=== PATIENT | female | born 1975 | race Caucasian/White ===

== ENCOUNTER 2024-02-05 14:05 | Emergency (ER) | payer BC ==
[~2024-02-05] VITALS: Ht 165.1 cm; Wt 62.5 kg
[2024-02-05 17:14] LABS: BILIRUBIN,URINE NEGATIVE (Neg); CLARITY,URINE CLOUDY (Clear); COLOR,URINE YELLOW (Yellow); GLUCOSE, URINE NEGATIVE (Neg); KETONES,URINE NEGATIVE (Neg); LEUKOCYTE ESTERASE ,URINE LARGE (Neg); NITRITES, URINE POSITIVE (Neg); OCCULT BLOOD,URINE MODERATE (Neg); PROTEIN,URINE NEGATIVE (Neg); UROBILINOGEN,URINE 0.2 E.U/dL (0.2-1.0)
[2024-02-05 17:17] LABS: UA COLLECTION TYPE CLN CATCH MIDSTREAM
[2024-02-05 17:19] LABS: PREOP URINE HCG NEGATIVE (NEGATIVE)
[2024-02-05 17:27] LABS: RBC,URINE NONE SEEN /HPF (0-2); WBC,URINE 30-50 /HPF (0-4)
[2024-02-05 17:28] LABS: BACTERIA,URINE 3+ /HPF (Neg); MUCUS STRANDS FEW /LPF (Neg); SQUAMOUS EPITHELIAL CELL,UR FEW /LPF (FEW)
[2024-02-05 17:31] LABS: WBC CLUMPS,URINE FEW /HPF (NEGATIVE)
[2024-02-05] MEDS ORDERED: CEPH-585 PO (17:58)
[2024-02-05] MEDS ORDERED: PHEN-716 PO (17:58)
[2024-02-05] MEDS: phenazopyridine 100mg tablet PO ONE (18:41)
[2024-02-05] MEDS: CefTRIAXone 1000mg IM Kit (w/lidocaine diluent) IM ONE (18:41)
[2024-02-05 19:24] VITALS: BP 125/65; PULSE 88; RESP 16; TEMP 99.2; O2SAT 100
== END 2024-02-05 19:34 | disposition home or self-care (01) ==
LOC: ER 14:06
DX: N39.0 Urinary tract infection, site not specified (principal); R21 Rash and other nonspecific skin eruption
CPT/HCPCS: 81001; 81025; 87088; 87186; 96372; 99283; J0696; 87077